=== PATIENT | female | born 1990 | race Caucasian/White ===

== ENCOUNTER 2022-10-11 08:20 | Outpatient (CLI) | payer OTHER ==
[~2022-10-11] VITALS: Ht 175.3 cm; Wt 114.5 kg
[~2022-10-11 08:20] MED LIST: PRENATAL VITAMI1 TA5 PO
--- NOTE | 2022-10-11 08:25 | NUR ---
0825 PT AMBULATORY TO UNIT WITH SPOUSE. PT STATES SHE HAS NOT FELT BABY MOVE SINCE 0900 10/10/2022. PT STATES "HE'S A PRETTY CHILL BABY, DOESN'T MOVE A LOT ANYWAY SO I WASN'T CONCERNED UNTIL THIS MORNING." PT IN ROOM AND PLACED ON EFM. EFM TRACING CAT 1 WITH ACCELERATIONS. PT RELIEVED. THIS RN INFORMED PT THAT SHE SHOULD NOT WAIT 24 HOURS IF THIS HAPPENS AGAIN. REVIEWED KICK COUNTS (10 KICKS IN 2 HOUR PERIOD) AND DISCUSSED SAFE MEASURES TO TAKE TO HELP BABY MOVE. PT UNDERSTANDS AND AGREES. PT HAS NO LOF AND SOME "JEANNE LEE CTX." PT STATES SHE DOESN'T DRINK ENOUGH WATER. THIS RN ENCOURAGED WATER INTAKE. ALSO DISCUSSED JUICE OR GATORADE IF CAN NOT TOLERATE WATER. PT AGREED.
[2022-10-11 08:55] VITALS: BP 124/76; PULSE 82; TEMP 98
--- NOTE | 2022-10-11 09:00 | NUR ---
ROLES ON UNIT. REVIED PRENATALS AND EFM. GAVE VORB TO DC PATIENT AFTER 30 MINUTES OF MONITORING REACTIVE EFM STRIP.
--- NOTE | 2022-10-11 09:15 | NUR ---
0915 REACTIVE EFM. PT COMFORTABLE D/C WITH INSTRUCTIONS TO RETURN IF DECREASED MOVEMENT AGAIN. PT AGREES.
== END 2022-10-11 09:20 | disposition home or self-care (01) ==
LOC: LDRO 08:20 → LDR 08:25 → LDRO 09:20
DX: O36.8130 Decreased fetal movements, third trimester, not applicable or unspecified (principal); Z3A.36 36 weeks gestation of pregnancy
CPT/HCPCS: OP

== ENCOUNTER 2022-10-19 02:54 | Outpatient (CLI) | payer OTHER ==
[~2022-10-19] VITALS: Ht 175.3 cm; Wt 115.5 kg
--- NOTE | 2022-10-19 03:10 | NUR ---
Ambulatory to unit for labor assessment, accompanied by significant other. Oriented to room, monitor, plan of care. Pt reports ctx since Wednesday, now getting closer and stronger. Reports "haven't really been able to sleep or eat anything"
[2022-10-19 03:20] VITALS: BP 120/62; PULSE 107; TEMP 99.6
[2022-10-19 04:30] VITALS: PULSE 111; TEMP 99.1
--- NOTE | 2022-10-19 05:55 | NUR ---
TORB ORDERS FOR CBC CBP AND CC UA. ATTEMPTED IV X2, PCR.REGULO ATTEMPTED 1, PCR.SUPPES ATTEMPTED X2 LAB NOTIFED TO COME DRAW LABS. PATIENT TOLERATED FAIR. TEARFUL.
[2022-10-19 06:11] LABS: COLLECTION METHOD CLEAN CATCH
[2022-10-19 06:16] LABS: HEMATOCRIT 38.2 % (37.0-47.0); HEMOGLOBIN 13.4 g/dl (12.5-16.0); MEAN CELL VOLUME 83 fl (80.0-100.0); MEAN CORPUSCULAR HEMOGLOBIN 29 pg (27-31); MEAN CORPUSCULAR HGB CONC 35 g/dl (33.0-37.0); MEAN PLATELET VOLUME 9.3 fl (7.4-10.4); PLATELET COUNT 244 K/mm3 (130-400); RED BLOOD COUNT 4.59 M/mm3 (4.10-5.30); REDCELL DISTRIBUTION WIDTH-CV 12.5 % (11.5-14.5)
[2022-10-19 06:19] LABS: MUCOUS Present (NOT PRESENT); URINE BACTERIA Rare /hpf (NONE SEEN); URINE RBC 0-2 /hpf (0-2); URINE WBC 0-2 /hpf (0-2)
[2022-10-19 06:23] LABS: PH 6.5 (5.0-8.5); URINE APPEARANCE Hazy (CLEAR/HAZY); URINE BLOOD Negative (NEGATIVE); URINE COLOR Yellow (YELLOW); URINE GLUCOSE Negative (NEGATIVE); URINE KETONE 2+ (NEGATIVE); URINE NITRATE Negative (NEGATIVE); URINE PROTEIN(semi-quant) Negative (NEGATIVE); URINE UROBILINOGEN 0.2 E.U/dL (0.2-1.0)
--- NOTE | 2022-10-19 06:26 | NUR ---
lAB HERE TO DRAW CBC AND CMP UA SENT WITH THEM.
[2022-10-19 06:30] VITALS: TEMP 99.5
[2022-10-19 06:33] LABS: BAND 8 % (0-10); LYMPHOCYTE 8 % (20.0-51.0); NEUTROPHILS 79 % (42.0-75.2); PLATELET ESTIMATE NORMAL (NORMAL)
[2022-10-19 06:36] LABS: ALBUMIN 2.6 gm/dL (3.5-5.0); BILIRUBIN,TOTAL 0.7 mg/dL (0.2-1.2); CALCIUM 8.9 mg/dL (8.4-10.2); CREATININE, serum 0.75 mg/dL (0.57-1.11); POTASSIUM 3.5 mmol/L (3.5-4.5); TOTAL PROTEIN 6.4 gm/dL (6.2-8.1)
[2022-10-19 07:00] VITALS: BP 110/69; PULSE 115
[2022-10-19 07:30] VITALS: BP 118/63; PULSE 110
[2022-10-19 07:45] VITALS: BP 118/60; PULSE 109; TEMP 98.2
--- NOTE | 2022-10-19 07:55 | NUR ---
SVE UNCHANGED. SEE PHYSICIAN NOTIFICATION. AFEBRILE AT THIS TIME. CATEGORY 1 EFM TRACING. PT REPORTS CONTRACTIONS ARE "LESS INTENSE THAN WHEN I GOT HERE." PER , PT MAY DC HOME.
== END 2022-10-19 07:55 | disposition home or self-care (01) ==
LOC: LDRO 02:54 → LDR 03:38 → LDRO 07:55
PROVIDERS: Student in an Organized Health Care Education/Training Program
DX: O47.1 False labor at or after 37 completed weeks of gestation (principal); Z3A.38 38 weeks gestation of pregnancy
CPT/HCPCS: OP; J7120

== ENCOUNTER 2022-10-26 11:02 | Inpatient (IN) | payer OTHER ==
[~2022-10-26] VITALS: Ht 175.3 cm; Wt 115.9 kg
[2022-10-28] VITALS (18 sets, daily range): BP systolic 91–132; BP diastolic 39–79; PULSE 68–95; TEMP 97.8–98.9
--- NOTE | 2022-10-28 05:35 | NUR ---
PT AMBULATES TO WITH SPOUSE. DISCUSSED PLAN OF CARE AND SECTION. THE PATIENT VERBALIZED UNDERSTANDING. PT DENIES CONTRACTIONS, LEAKING OF FLUID OR BLEEDING. HAS BEEN FEELING MOVEMENT. EFM AND TOCO PLACED, VSS, CONSENT FORMS EXPLAINED AND SIGNED.
[2022-10-28 06:00] LABS: HEMOGLOBIN 12.8 g/dl (12.5-16.0); MEAN CELL VOLUME 82 fl (80.0-100.0); MEAN CORPUSCULAR HEMOGLOBIN 29 pg (27-31); MEAN CORPUSCULAR HGB CONC 35 g/dl (33.0-37.0); MEAN PLATELET VOLUME 9.3 fl (7.4-10.4); PLATELET COUNT 270 K/mm3 (130-400); RED BLOOD COUNT 4.46 M/mm3 (4.10-5.30); REDCELL DISTRIBUTION WIDTH-CV 12.6 % (11.5-14.5)
[2022-10-28 06:01] LABS: HEMATOCRIT 36.7 % (37.0-47.0)
--- NOTE | 2022-10-28 06:15 | NUR ---
THIS NURSE ASSUMES CARE OF PT. VITAL SIGNS STABLE. CATEGORY 1 EFM TRACING. LR BOLUS INFUSING. LABS RESULTED AND IN CHART. PT EDUCATED ON PLAN OF CARE FOR THE MORNING. DENIES FURTHER QUESTIONS AT THIS TIME.
[2022-10-28] MEDS ORDERED: ZOVIRAX400 MG PO (06:37)
[2022-10-28 06:49] LABS: BAND 13 % (0-10); EOSINOPHIL 5 % (0-4); LYMPHOCYTE 14 % (20.0-51.0); NEUTROPHILS 63 % (42.0-75.2)
[2022-10-28 06:50] LABS: PLATELET ESTIMATE NORMAL (NORMAL)
--- NOTE | 2022-10-28 08:35 | NUR ---
PT TO PACU FOLLOWING PRIMARY SECTION, DX:HSV WITH RECENT OUTBREAK. LOCHIA SCANT. FUNDUS FIRM AT UMBILICUS. TOTAL QBL FOLLOWING SURGERY: 350CC. PT HYPOTENSIVE BUT STABLE. NAUSEA PRESENT IN OR AND CONTINUES IN PACU. MODERATE AMOUNT OF LIGHT GREEN EMESIS. PT FULLY ALERT AND ORIENTED. DENIES PAIN. MCCOY DRAINING CLEAR YELLOW URING. LR INFUSING. WILL CONTINUE WITH RECOVERY AND PLAN OF CARE.
[2022-10-29 06:04] LABS: HEMOGLOBIN 11.9 g/dl (12.5-16.0)
[2022-10-29 06:12] LABS: HEMATOCRIT 34.4 % (37.0-47.0)
[2022-10-29 08:00] VITALS: BP 112/82; PULSE 78; TEMP 98
--- NOTE | 2022-10-29 08:06 | NUR ---
0785 this RN to room to complete AM assessments/vitals/medications. POC reviewed, white board updated. Pt expresses they just attempted at the breast but was sleepy and not interested. This RN educated to still attempt every 3 hours or if baby starts to wake up/get fussy. Also educated when getting ready to feed to remove all blankets from baby, change diaper and place skin to skin to prepare for feeding. Expressed if she needed any help to call me in to help. Parents state they understand, questions and concerns invited- none at this time. Infant to nursery to complete 24 hour labs, then returned to mother's room.
--- NOTE | 2022-10-29 09:16 | NUR ---
Initial visit; Parents thanked Installment Agent for visiting and offering "Special Blessings" for their son. Installment Agent thanked family for choosing our hospital and wished their family God's blessings.
--- NOTE | 2022-10-29 10:15 | NUR ---
Report received from KOBY Alvarez and care resumed by this nurse.
--- NOTE | 2022-10-29 14:20 | NUR ---
1250 REPORT RECEIVED FROM URIEL Tran RN. THIS RN ASSUMES CARE OF PT.
[2022-10-29 17:30] VITALS: BP 122/72; PULSE 68; TEMP 97.6
[2022-10-30 08:15] VITALS: BP 107/56; PULSE 86; TEMP 98.5
[2022-10-30] MEDS ORDERED: TYLENOL 500MG500 MG PO (08:20)
[2022-10-30] MEDS ORDERED: IBU600 MG PO (08:20)
[2022-10-30] MEDS ORDERED: ROXICODONE 55 MG/TAB PO (08:20)
--- NOTE | 2022-10-30 12:31 | NUR ---
EDU VIDEOS WATCHED. D/C PAPERWORK REVIEWED.
== END 2022-10-30 12:50 | disposition home or self-care (01) | DRG 787 ==
LOC: OB 10-28 05:25 → MEDICAL 10-28 05:25 → OB 10-28 05:26
PROVIDERS: ADMIT Obstetrics & Gynecology
PROC: 10D00Z1 Extraction of Products of Conception, Low, Open Approach (ICD-10-PCS; principal; 2022-10-28)
DX: O98.82 Other maternal infectious and parasitic diseases complicating childbirth (principal); O98.32 Other infections with a predominantly sexual mode of transmission complicating childbirth; B95.1 Streptococcus, group B, as the cause of diseases classified elsewhere; Z3A.39 39 weeks gestation of pregnancy; Z37.0 Single live birth; A60.09 Herpesviral infection of other urogenital tract
CPT/HCPCS: J0690; J1100; J1885; J2405; J2590; J7120